=== PATIENT | male | born 1935 | race Caucasian/White ===

== ENCOUNTER → 2025-01-15 08:10 | Outpatient (CLI) | payer MEDICARE, SELFPAY ==
--- NOTE | 2025-01-15 08:13 | DI.US.S_ITS ---
PROCEDURE: US RENAL COMPLETE INDICATIONS: CKD / AFIB TECHNIQUE: Real-time scanning was performed of the kidneys and bladder, with image documentation. COMPARISON: None. FINDINGS: Kidneys: Left kidney is surgically absent. Right kidney measures 12.3 cm long. Right renal cortical thickness is 1.9 cm. Right renal cortical echotexture is normal. No hydronephrosis or nephrolithiasis. No suspicious solid mass lesions. 1.6 centimeter simple cyst in the superior and midpole of the right kidney. Bladder: Pre-void bladder volume is 104 mL. Post-void residual is 59 mL. Pre-void images demonstrate no intraluminal masses or stones. On pre-void images, right ureteral jet is noted with color Doppler interrogation. (Of note, ureteral jets may not be detectable in up to 25% of cases due to insufficient differences in specific gravity between ureteral and bladder urine). Miscellaneous: No free pelvic fluid. IMPRESSION: Left nephrectomy. No sonographic abnormality involving the right kidney. Dictated by: Hawa Delatorre MD, PhD on 01/15/2025 at 11:05 Approved by: Hawa Delatorre MD, PhD on 01/15/2025 at 11:08
--- NOTE | 2025-01-15 08:13 | DI.ECHO.S_ITS ---
[facility] : : [address] [place] : : [id number] : : Phone: [phone] Echocardiogram Report + + :Name: DUSTY BURR Study Date: 01/15/2025 Height: 72 in : :Hospital ReadingLocation: Weight: 175 lb : : Gender: Male BSA: 2.0 m2 : :: 1935 Age: 89 yrs BP: 140/82 mmHg: :Reason For Study: ATRIAL FIBRILLATION : :Ordering Physician: MARY, : :DANIELLA Carrasco Performed By: Tyrone Areavlo : :Referring: DANIELLA HERNANDEZ : + + Interpretation Summary 1) Mildly increased left ventricular thickness (concentric) with normal size and low normal systolic function (EF 50-55%). 2) Normal right ventricular size with mildly reduced function. 3) There is severe biatrial enlargement. 4) There is mild mitral regurgitation. 5) No prior Echo available for comparison. Procedure: A two-dimensional transthoracic echocardiogram with color flow and Doppler was performed. The study quality was technically good. There is no prior echocardiogram noted for this patient. The patient was in atrial fibrillation with heart rates between 55-93 bpm during the exam. Left Ventricle: The left ventricle is normal in size. There is mild concentric left ventricular hypertrophy. There is no ventricular septal defect visualized. The ejection fraction is estimated to be 50-55%. There are no focal wall motion abnormalities. Diastolic function could not be accurately assessed due to atrial fibrillation. Right Ventricle: The right ventricle is normal size. Right ventricular systolic function is mildly reduced. Atria: There is severe biatrial enlargement. There is no Doppler evidence for an interatrial shunt. Mitral Valve: The mitral valve leaflets appear mildly thickened, but open well. There is mild mitral regurgitation. Aortic Valve: The aortic valve is trileaflet. The aortic valve opens well. There is no aortic valve stenosis. There is trace aortic regurgitation. Tricuspid Valve: The tricuspid valve leaflets are thin and pliable. There is mild tricuspid regurgitation. The right ventricular systolic pressure is estimated to be at least 32 mmHg based on an estimated right atrial pressure of 3 mm Hg. Pulmonic Valve: The pulmonic valve is normal in structure and function. There is trace pulmonic regurgitation. Great Vessels: The aortic root is normal size. The dimensions of the ascending aorta are normal. The pulmonary artery is normal size. The IVC is of normal diameter and collapses greater than 50% with a sniff. This suggests a low right atrial pressure of 3 mm Hg. Pericardium/ Pleura There is no pericardial effusion. There is no pleural effusion. MMode/2D Measurements & Calculations LVIDd: 4.5 cm LVOT diam: 2.3 cm LVIDs: 2.9 cm Ao root diam: 3.3 cm FS: 35.1 % asc Aorta Diam: 3.1 cm EPSS: 0.62 cm IVSd: 1.2 cm LVPWd: 1.1 cm LV barker. diameter/BSA (cm/m^2): 2.2 LV sys. diameter/BSA (cm/m^2): 1.5 LA A2 area: 32.5 cm2 RA long axis: 6.1 cm LA A4 area: 29.0 cm2 RA area: 28.6 cm2 LA length (vol): 7.0 cm RA vol: 113.9 ml LA vol: 114.1 ml RA : 56.6 ml/m2 LA vol index: 56.7 ml/m2 IVC diam: 1.6 cm RVD1 (basal): 3.6 cm RVD2 (mid): 2.7 cm TAPSE: 1.7 cm Doppler Measurements & Calculations Ao V2 max: 120.4 cm/sec LVOT Max Wilmer: 83.8 cm/sec Ao V2 mean: 77.9 cm/sec LV V1 max P.8 mmHg Ao max P.8 mmHg LV V1 VTI: 20.2 cm Ao mean P.8 mmHg SERGE(I,D): 3.0 cm2 Ao V2 VTI: 26.7 cm SERGE(V,D): 2.8 cm2 sev ratio: 0.76 SERGE indexed to BSA (cm^2/m^2): 1.5 MV E max wilmer: 73.3 cm/sec TR max wilmer: 271.1 cm/sec MV A max wilmer: 16.6 cm/sec TR max P.4 mmHg MV E/A: 4.4 PA V2 max: 64.4 cm/sec Med Peak E' Wilmer: 8.1 cm/sec PA V2 mean: 46.4 cm/sec E/E' med: 9.0 PA mean P.95 mmHg MV dec time: 0.16 sec PA pr(Accel): 24.2 mmHg SV(LVOT): 81.2 ml Reading Physician:01:04 PM
== END ==
PROVIDERS: PCP Family Medicine; Referring Provider Family Medicine; Visit Provider Family Medicine
DX: I48.91 Unspecified atrial fibrillation (principal); N18.9 Chronic kidney disease, unspecified; Z90.5 Acquired absence of kidney; I51.7 Cardiomegaly; I34.0 Nonrheumatic mitral (valve) insufficiency
CPT/HCPCS: 76770; 93306

== ENCOUNTER 2025-05-25 18:27 | Emergency (ER) | payer MEDICARE, SELFPAY ==
[2025-05-25] VITALS (15 sets, daily range): BP systolic 127–187; BP diastolic 66–96; PULSE 58–84; RESP 11–23; TEMP 36.8; O2SAT 95–99; BMI 23.7
--- NOTE | 2025-05-25 18:44 | DI.RAD.S_ITS ---
PROCEDURE: XR CHEST 1V INDICATIONS: Chest Pain TECHNIQUE: One view of the chest was acquired. COMPARISON: None. FINDINGS: Surgical changes and devices: None. Lungs and pleura: Lungs are clear. No pleural effusions or pneumothorax. Mediastinum: Mediastinal contours appear normal. Heart size is normal. Bones and chest wall: No suspicious bony lesions. Overlying soft tissues appear unremarkable. IMPRESSION: No acute cardiopulmonary abnormality is seen. Dictated by: Alireza Kothari M.D. on 05/25/2025 at 19:36 Approved by: Alireza Kothari M.D. on 05/25/2025 at 19:37
--- NOTE | 2025-05-25 19:01 | DI.CT.S_ITS ---
PROCEDURE: CT HEAD/BRAIN WO CON INDICATIONS: dizziness, headache, age 89 TECHNIQUE: Noncontrast 4.5 mm thick angled axial sections acquired from the foramen magnum to the vertex, with coronal and sagittal reformats. For radiation dose reduction, the following was used: automated exposure control, adjustment of mA and/or kV according to patient size. COMPARISON: None. FINDINGS: Image quality: Diagnostic. CSF spaces: Basal cisterns are patent. No extra-axial fluid collections. Ventricles are normal in size and shape. No intraventricular hemorrhage. Brain: No midline shift. Moderate-sized area intraparenchymal hemorrhage at the left parietal occipital lobe measuring 2.8 cm, (2/22). Surrounding mild vasogenic edema. Stoll-white matter interface is normal. Skull and face: Calvarium and visualized facial bones are intact, without suspicious lesions. Sinuses: Right frontal sinus opacification. Visualized sinuses and mastoids are otherwise clear. IMPRESSION: Acute intraparenchymal hemorrhage at the left parietal occipital lobe measuring 2.8 cm. 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 Comment: Findings were discussed with Sridhar Aguirre at 7:25 p.m. Dictated by: Alireza Kothari M.D. on 05/25/2025 at 19:20 Approved by: Alireza Kothari M.D. on 05/25/2025 at 19:26
--- NOTE | 2025-05-25 19:04 | EKG_ITS ---
[address] [address] Test Date: 2025-05-25 Pat Name: Fidel Silverman Department: [facility] Room: Gender: Male [employer]: DUSTIN : 1935 Requested By: Order Number: [id number] Reading MD: Giorgio Woodruff Measurements Intervals [place] Rate: 57 P: NE: QRS: 36 QRSD: 100 T: 30 QT: 418 QTc: 406 Interpretive Statements Atrial fibrillation with slow ventricular response Electronically Signed On 06-06-2025 8:46:04 PDT by Giorgio Woodruff
[2025-05-25 19:05] LABS: Add Manual Diff / Slide Review NO; Hematocrit 38.5 % (41-53); Hemoglobin 13.0 g/dL (13.5-17.5); Lymphocytes Absolute Auto 1900 /uL (1100-4500); Mean Corpuscular HGB Conc 33.7 % (30-36); Mean Corpuscular Hemoglobin 31.7 PG (26-34); Mean Corpuscular Volume 94.0 fL (80-100); Platelet Count 206 X10^3/uL (150-400)
[2025-05-25 19:14] LABS: INR 1.1 (0.9-1.3); Prothrombin Time 11.9 SECONDS (9.4-12.5)
[2025-05-25 19:17] LABS: PTT Partial Thromboplastin Tim 31 SECONDS (25.1-36.5)
[2025-05-25 19:18] LABS: Alanine Aminotransferase 24 IU/L (<50); Albumin 4.5 g/dL (3.5-5.0); Albumin Globulin Ratio 1.3 (1.0-2.8); Alkaline Phosphatase 62 U/L (38-126); Blood Urea Nitrogen 24 mg/dL (9-20); Calcium 9.1 mg/dL (8.4-10.2); Carbon Dioxide 28 mmol/L (22-32); Chloride 104 mmol/L (98-107); Creatine Kinase 98 U/L (55-170); Estimated Glomerular Filt Rate 58 mL/min (>60); Globulin 3.6 g/dL (1.7-4.1); Glucose 98 mg/dL (70-99); HEMOLYSIS < 15 (0-50); Lipase 96 U/L (23-300); Magnesium 2.0 mg/dL (1.6-2.3); Potassium 4.3 mmol/L (3.4-5.1); Sodium 139 mmol/L (137-145); Total Protein 8.1 g/dL (6.3-8.2)
[2025-05-25 19:29] LABS: NT-proBNP (BNP-Adult 18+) 1850 pg/mL (<450); Troponin I < 0.012 ng/mL (0.01-0.034)
--- NOTE | 2025-05-25 19:35 | ED.GENADULT ---
HPI - General Adult General Chief complaint: Dizziness Stated complaint: Disorientation, Headaches Time Seen by Provider: 05/25/25 19:01 Source: patient Mode of arrival: Ambulatory History of Present Illness HPI narrative: 89-year-old male right-handed, takes aspirin but no other blood thinners, complains of headache and dizziness onset 1:00 p.m. today while standing, does not recall having any visual problems with the thought that he kind of walked Toradol wall and into the wall, seemed to not be able to see very well, denies any visual problems now. Had loss of balance sensation, no falls or injuries recalled. No nausea or vomiting. No focal weakness to face arm or leg. For no focal numbness to face arm or leg. Related Data Home Medications ?Medication ?Instructions ?Recorded ?Confirmed amlodipine 5 mg tablet 5 mg PO DAILY 05/25/25 05/25/25 atorvastatin 20 mg tablet 20 mg PO DAILY 05/25/25 05/25/25 lisinopril 40 mg tablet 40 mg PO DAILY 05/25/25 05/25/25 Allergies Allergy/AdvReac Type Severity Reaction Status Date / Time No Known Drug Allergies Allergy Verified 05/25/25 18:35 Patient History Social History Smoking Status: Former smoker Smoking Status: Former smoker Exam Narrative Exam Narrative: GENERAL: Well-developed patient, in mild distress. HEAD: Atraumatic. Normocephalic. EYES: Pupils equal round and reactive. Extraocular motions intact. No scleral icterus. No injection or drainage. ENT: Nose without bleeding, purulent drainage. Throat without erythema, tonsillar hypertrophy or exudate. Airway patent. NECK: Trachea midline. Non tender CARDIOVASCULAR: Regular rate and rhythm without murmurs, gallops, or rubs. RESPIRATORY: Clear to auscultation. Breath sounds equal bilaterally. No wheezes, rales, or rhonchi. GASTROINTESTINAL: Abdomen soft, non-tender, nondistended. EXTREMITIES: No edema or joint tenderness. BACK: Nontender without deformity or crepitance. No flank tenderness. NEURO: AOx3. Clear speech and cooperative. Cranial nerves normal as tested. Motor functions 5/5 bilateral upper extremities and lower extremities. Vpedez-lz-gdii testing normal bilaterally. Intact light touch to sensation bilateral face arms legs. SKIN: No rash or erythema of visible areas Initial Vital Signs Initial Vital Signs: Vital Signs Temperature 98.2 F 05/25/25 18:36 Pulse Rate 63 05/25/25 18:36 Respiratory Rate 18 05/25/25 18:36 Blood Pressure 187/87 H 05/25/25 18:36 Pulse Oximetry 97 05/25/25 18:36 Oxygen Delivery Method Room Air 05/25/25 18:36 Course Orders Ordered: Discontinued Medications Levetiracetam 1,000 mg/ Sodium (Chloride) 110 mls @ 440 mls/hr IV NOW ONE Stop: 05/25/25 19:24 Last Infusion: 05/25/25 20:11 Dose: Infused Documented By: Admin: 05/25/25 19:56 Dose: 440 mls/hr Documented By: EDUARD Nicardipine HCl 25 mg/ Sodium (Chloride) 250 mls @ 50 mls/hr IV TITRATE DAVONTE; Protocol Ondansetron HCl (Ondansetron 4 Mg/2 Ml Inj) 4 mg IV NOW ONE Stop: 05/25/25 19:26 Last Admin: 05/25/25 19:56 Dose: 4 mg Documented By: EDUARD Vital Signs Vital signs: Vital Signs - 8 hr 05/25/25 18:36 05/25/25 19:22 05/25/25 19:50 Temperature 98.2 F Pulse Rate 63 62 74 Respiratory Rate 18 14 13 Blood Pressure 187/87 H 168/81 H Pulse Oximetry 97 98 Oxygen Delivery Method Room Air 05/25/25 20:00 05/25/25 20:15 05/25/25 20:26 Temperature Pulse Rate 70 65 60 Respiratory Rate 17 21 20 Blood Pressure 165/81 H 178/88 H 145/70 H Pulse Oximetry 99 97 98 Oxygen Delivery Method 05/25/25 20:30 05/25/25 20:56 05/25/25 21:00 Temperature Pulse Rate 66 58 L 62 Respiratory Rate 20 11 L 18 Blood Pressure 162/73 H 144/72 H 127/66 Pulse Oximetry 97 97 97 Oxygen Delivery Method Room Air 05/25/25 21:15 05/25/25 21:30 05/25/25 21:30 Temperature Pulse Rate 60 60 Respiratory Rate 18 17 Blood Pressure 137/69 181/82 H Pulse Oximetry 96 96 Oxygen Delivery Method Room Air 05/25/25 21:34 05/25/25 21:34 05/25/25 21:44 Temperature Pulse Rate 61 71 Respiratory Rate 18 21 Blood Pressure 161/96 H 157/88 H Pulse Oximetry 97 97 Oxygen Delivery Method 05/25/25 21:46 05/25/25 21:53 Temperature Pulse Rate 63 84 Respiratory Rate 23 18 Blood Pressure 158/79 H 163/90 H Pulse Oximetry 95 96 Oxygen Delivery Method Room Air Medical Decision Making Lab Data Lab results reviewed: Yes I reviewed the patient's lab results. 05/25/25 18:55 05/25/25 18:55 Labs: Lab Results 05/25/25 05/25/25 Range/Units 18:55 19:37 WBC 6.1 (4.5-11.0) X10^3/uL RBC 4.09 L (4.5-5.9) X10^6/uL Hgb 13.0 L (13.5-17.5) g/dL Hct 38.5 L (41-53) % MCV 94.0 (80-100) fL MCH 31.7 (26-34) PG MCHC 33.7 (30-36) % RDW 13.3 (11.6-14.8) % Plt Count 206 (150-400) X10^3/uL Neut % (Auto) 53.3 (50-75) % Lymph % (Auto) 31.6 (25-40) % [place] % (Auto) 9.8 (3-14) % Eos % (Auto) 4.4 H (2-4) % Baso % (Auto) 0.9 (0-2) % Neut # (Auto) 3300 (4224-3957) /uL Lymph # (Auto) 1900 (0767-5577) /uL [place] # (Auto) 600 (0-900) /uL Eos # (Auto) 300 (0-450) /uL Baso # (Auto) 100 (0-100) /uL PT 11.9 (9.4-12.5) SECONDS INR 1.1 (0.9-1.3) APTT 31 (25.1-36.5) SECONDS Sodium 139 (137-145) mmol/L Potassium 4.3 (3.4-5.1) mmol/L Chloride 104 (98-107) mmol/L Carbon Dioxide 28 (22-32) mmol/L BUN 24 H (9-20) mg/dL Creatinine 1.21 (0.66-1.25) mg/dL Estimated GFR 58 L (>60) mL/min BUN/Creatinine Ratio 19.8 (6-22) Glucose 98 (70-99) mg/dL Calcium 9.1 (8.4-10.2) mg/dL Magnesium 2.0 (1.6-2.3) mg/dL Total Bilirubin 0.6 (0.2-1.3) mg/dL AST 34 (17-59) IU/L ALT 24 (<50) IU/L Alkaline Phosphatase 62 (38-126) U/L Total Creatine Kinase 98 (55-170) U/L Troponin I < 0.012 (0.01-0.034) ng/mL NT-Pro-B Natriuret Pep 1850 H (<450) pg/mL Total Protein 8.1 (6.3-8.2) g/dL Albumin 4.5 (3.5-5.0) g/dL Globulin 3.6 (1.7-4.1) g/dL Albumin/Globulin Ratio 1.3 (1.0-2.8) Lipase 96 (23-300) U/L Blood Type A Positive Antibody Screen Negative Imaging Data CT scan - head: Radiologist's Impression: [place] [address] CT Scan Report Signed Patient: Fidel Silverman MR#: [id number] : 1935 Acct:[id number] Age/Sex: 89 / M Date of Service: 05/25/25 Loc: ED Accession Number: [id number] Procedure: CT head/brain wo con Ordering Provider: Sridhar Aguirre MD PROCEDURE: CT HEAD/BRAIN WO CON INDICATIONS: dizziness, headache, age 89 TECHNIQUE: Noncontrast 4.5 mm thick angled axial sections acquired from the foramen magnum to the vertex, with coronal and sagittal reformats. For radiation dose reduction, the following was used: automated exposure control, adjustment of mA and/or kV according to patient size. COMPARISON: None. FINDINGS: Image quality: Diagnostic. CSF spaces: Basal cisterns are patent. No extra-axial fluid collections. Ventricles are normal in size and shape. No intraventricular hemorrhage. Brain: No midline shift. Moderate-sized area intraparenchymal hemorrhage at the left parietal occipital lobe measuring 2.8 cm, (2/). Surrounding mild vasogenic edema. Stoll-white matter interface is normal. Skull and face: Calvarium and visualized facial bones are intact, without suspicious lesions. Sinuses: Right frontal sinus opacification. Visualized sinuses and mastoids are otherwise clear. IMPRESSION: Acute intraparenchymal hemorrhage at the left parietal occipital lobe measuring 2.8 cm. 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 Comment: Findings were discussed with Sridhar Aguirre at 7:25 p.m. Dictated by: Alireza Kothari M.D. on 05/25/2025 at 19:20 Approved by: Alireza Kothari M.D. on 05/25/2025 at 19:26 CTA - brain/neck: Radiologist's Impression: [address] [address] [address] Scan Report Signed Patient: Fidel Silverman MR#: [id number] : 1935 Acct:[id number] Age/Sex: 89 / M Date of Service: 05/25/25 Loc: ED Accession Number: [id number] Procedure: CT angio head and neck Ordering Provider: Sridhar Aguirre MD PROCEDURE: CT ANGIO HEAD AND NECK INDICATIONS: head bleed, eval for AVM/aneursym TECHNIQUE: After the administration of intravenous contrast, 1 mm thick sections acquired from the aortic arch through the [place] of [place]. 3-dimensional ffokuct-damlokstg-rpzymnwyqp (MIP) and/or volume rendering reformats were acquired of the central intracranial vasculature and neck separately. For radiation dose reduction, the following was used: automated exposure control, adjustment of mA and/or kV according to patient size. COMPARISON: [facility], CT, CT HEAD/BRAIN WO CON, 05/25/2025, 19:08. FINDINGS: Image quality: Diagnostic. Cerebral CT Angiogram: Internal carotid arteries: Moderate supraclinoid calcification and stenosis bilaterally. Anterior cerebral arteries: Unremarkable. No significant stenosis. No occlusion. No aneurysm. Middle cerebral arteries: Unremarkable. No significant stenosis. No occlusion. No aneurysm. Posterior cerebral arteries: Unremarkable. No significant stenosis. No occlusion. No aneurysm. Basilar artery: Unremarkable. No significant stenosis. No occlusion. No aneurysm. Vertebral arteries: Unremarkable as visualized. Dural venous sinuses: Unremarkable given phase of enhancement. Other: Arterial phase appearance of the brain demonstrates left posterior parietal hemorrhage. Neck CT Angiogram: Internal carotid arteries: Approximate 50% stenosis at the origin the left internal artery secondary to calcification. Common carotid arteries: Unremarkable. No significant stenosis. No dissection or occlusion. External carotid arteries: Unremarkable. No occlusion. Vertebral arteries: Unremarkable. No significant stenosis. No dissection or occlusion. Aortic Arch and Mediastinum: Partially visualized aortic arch unremarkable without evidence of aneurysm. Origins of the great vessels unremarkable. Other: Arterial phase soft tissues of the neck and chest are unremarkable. 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 Approximate 50% stenosis at the origin of the left internal carotid artery. Left parietal occipital parenchymal hemorrhage. Please see CT brain report 05/25/2020 for further details. Any quantitative measurements of stenosis were performed using NASCET criteria. Dictated by: Remedios Parisi M.D. on 05/25/2025 at 21:19 Approved by: Remedios Parisi M.D. on 05/25/2025 at 21:23 ECG Data Attestation: I personally reviewed and interpreted this ECG as follows: Interpretation: 1904, atrial fibrillation with slow ventricular response 57, no obvious ST segment elevation or depression changes. QRS 100, QTC 406. MDM Narrative Medical decision making narrative: 89-year-old male right-handed who takes aspirin but no other blood thinners, has headache and dizziness and disorientation 1:00 p.m., did not initially want to come in for evaluation but urged him to come here. No nausea or vomiting. Has frontal headache. CT head noncontrast scan from waiting room showed left-sided head bleed. Placed in room. Radiology reading pending. Phone call from Radiology. Then imported report. CT head. Impressions: ?Acute intraparenchymal hemorrhage at the left parietal occipital lobe measuring 2.8 cm. 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 No midline shift. See radiology report. Systolic blood pressure 180, we will initiate IV Cardene with goal to keep systolic blood pressure less than 160. IV Keppra, IV Zofran. We will transfer to neurology/neurosurgical capable facility. Neither available here. Patient/ expressed understanding. 2029, case discussed with Neurology [facility] stroke fellow Dr. Matthew. Agrees with IV Cardene to keep systolic blood pressure less than 160. Agrees with IV Keppra and Zofran. She will review case with her attending, likely transfer. Requests CT angiogram to evaluate for aneurysm/AVM given lack of trauma, suspected spontaneous hemorrhagic intracranial bleed. Await call back from neuro after attending consultation, anticipating transfer. Keep NPO. CT angiogram study mentioned no AVM or aneurysmal changes, 50% narrowing ICA noted. See radiology report. 2114, call back from Neurology who can accept ED to ED at [facility]. We will arrange air ambulance transport. Systolic blood pressure drifting up to 180s, we will start the nicardipine, goal systolic blood pressure less than 160. Air ambulance transport has been requested. Keep NPO. Critical Care Time Critical Care Time Critical Care Time: Yes Total Critical Care Time: 35 Attestation: The high probability of a clinically significant, sudden or life threatening deterioration of the [neurologic, cerebrovascular] system(s) required my full and direct attention, intervention and personal management. The aggregate critical care time was [35] minutes. This time is in addition to time spent performing reported procedures but includes the following: [x] Data Review and interpretation [x] Patient assessment and monitoring of vital signs [x] Documentation [x] Medication orders and management Discharge Plan Departure Patient Disposition: [facility] Clinical Impression: Intracerebral hemorrhage Prescriptions: No Action atorvastatin 20 mg tablet 20 mg PO DAILY amlodipine 5 mg tablet 5 mg PO DAILY lisinopril 40 mg tablet 40 mg PO DAILY Referrals: Hugo Harrison MD [Primary Care Provider, Family Practice]
[2025-05-25] MEDS: ONDANSETRON 4 MG/2 ML INJ IV (19:56)
--- NOTE | 2025-05-25 20:10 | DI.CT.S_ITS ---
PROCEDURE: CT ANGIO HEAD AND NECK INDICATIONS: head bleed, eval for AVM/aneursym TECHNIQUE: After the administration of intravenous contrast, 1 mm thick sections acquired from the aortic arch through the [place] of [place]. 3-dimensional aaqbubc-tgtvwbjwe-mhljbfaxjv (MIP) and/or volume rendering reformats were acquired of the central intracranial vasculature and neck separately. For radiation dose reduction, the following was used: automated exposure control, adjustment of mA and/or kV according to patient size. COMPARISON: [facility], CT, CT HEAD/BRAIN WO [facility], 05/25/2025, 19:08. FINDINGS: Image quality: Diagnostic. Cerebral CT Angiogram: Internal carotid arteries: Moderate supraclinoid calcification and stenosis bilaterally. Anterior cerebral arteries: Unremarkable. No significant stenosis. No occlusion. No aneurysm. Middle cerebral arteries: Unremarkable. No significant stenosis. No occlusion. No aneurysm. Posterior cerebral arteries: Unremarkable. No significant stenosis. No occlusion. No aneurysm. Basilar artery: Unremarkable. No significant stenosis. No occlusion. No aneurysm. Vertebral arteries: Unremarkable as visualized. Dural venous sinuses: Unremarkable given phase of enhancement. Other: Arterial phase appearance of the brain demonstrates left posterior parietal hemorrhage. Neck CT Angiogram: Internal carotid arteries: Approximate 50% stenosis at the origin the left internal artery secondary to calcification. Common carotid arteries: Unremarkable. No significant stenosis. No dissection or occlusion. External carotid arteries: Unremarkable. No occlusion. Vertebral arteries: Unremarkable. No significant stenosis. No dissection or occlusion. Aortic Arch and Mediastinum: Partially visualized aortic arch unremarkable without evidence of aneurysm. Origins of the great vessels unremarkable. Other: Arterial phase soft tissues of the neck and chest are unremarkable. 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 Approximate 50% stenosis at the origin of the left internal carotid artery. Left parietal occipital parenchymal hemorrhage. Please see CT brain report 05/25/2020 for further details. Any quantitative measurements of stenosis were performed using NASCET criteria. Dictated by: Remedios Parisi M.D. on 05/25/2025 at 21:19 Approved by: Remedios Parisi M.D. on 05/25/2025 at 21:23
== END 2025-05-25 22:25 | disposition short-term general hospital (02) ==
PROVIDERS: Emergency Provider Emergency Medicine; PCP Family Medicine
DX: I61.9 Nontraumatic intracerebral hemorrhage, unspecified (principal); R51.9 Headache, unspecified
CPT/HCPCS: 36415; 70450; 70496; 70498; 71045; 80053; 82550; 83690; 83735; 83880; 84484; 85025; 85610; 85730; 86850; 86900; 86901; 93005; 96374; 96375; 99284; 99291; J1953; J2405; Q9967